=== PATIENT | female | born 1985 | race Caucasian/White ===

== ENCOUNTER 2022-10-22 00:48 | Emergency (ER) | payer OTHER ==
[~2022-10-22] VITALS: Ht 165.1 cm; Wt 87.7 kg
[~2022-10-22 00:48] MED LIST: BACTRIM PO
[2022-10-22 00:59] VITALS: BP 120/74
--- NOTE | 2022-10-22 01:03 | NUR ---
pt to the bathroom for urine collection
--- NOTE | 2022-10-22 01:08 | NUR ---
pt to lobby
--- NOTE | 2022-10-22 01:20 | NUR ---
urine walked to lab
--- NOTE | 2022-10-22 02:46 | NUR ---
Dr. Rangel examining patient.
[2022-10-22] MEDS ORDERED: CYCLOBENZAPRINE 10 MG TAB PO ONE (02:50)
[2022-10-22] MEDS ORDERED: LIDOCAINE 5% 1 EA PATCH TP SCH (02:50)
[2022-10-22] MEDS ORDERED: ACETAMINOPHEN EXTRA STRENGTH 500 MG TAB PO ONE (02:50)
[2022-10-22] MEDS ORDERED: HYDROcodone/APAP 5/325 MG 1 TAB TAB PO ONE (02:50)
[2022-10-22] MEDS ORDERED: KETOROLAC 30 MG/ML VIAL IM ONE (02:50)
--- NOTE | 2022-10-22 03:06 | NUR ---
Patient resting in bed, A/Ox4, chest rise and fall symmetrical, no s/s of distress, on monitor.
[2022-10-22 03:29] LABS: APPEARANCE,URINE HAZY (CLEAR); BILIRUBIN,URINE NEGATIVE (NEGATIVE); BLOOD, URINE 3+ (NEGATIVE); COLOR,URINE YELLOW (YELLOW); LEUKOCYTE ESTERASE ,URINE 3+ (NEGATIVE); NITRITE, URINE NEGATIVE (NEGATIVE); UGLUCOSE NEGATIVE (NEGATIVE)
[2022-10-22 03:53] LABS: RBC,URINE 0-5 /HPF (0-5)
--- NOTE | 2022-10-22 04:00 | NUR ---
Patient resting in bed, A/Ox4, chest rise and fall symmetrical, no c/o pain or s/s of distress, on monitor.
[2022-10-22] MEDS ORDERED: ACET-10509 PO (04:03)
[2022-10-22] MEDS ORDERED: CEFP200T20 PO (04:03)
[2022-10-22] MEDS ORDERED: IBUP-2213 PO (04:03)
[2022-10-22] MEDS ORDERED: CYCL-711 PO (04:03)
[2022-10-22 04:07] VITALS: BP 105/65
== END 2022-10-22 04:07 | disposition home or self-care (01) ==
LOC: MED 00:48
DX: M54.50 Low back pain, unspecified (principal); N39.0 Urinary tract infection, site not specified; Z88.0 Allergy status to penicillin; Z88.2 Allergy status to sulfonamides; Z79.899 Other long term (current) drug therapy
CPT/HCPCS: 81001; 81025; 87086; 96372; 99284; J1885